=== PATIENT | female | born 1935 | race Caucasian/White ===

== ENCOUNTER 2019-12-04 12:36 | Outpatient (CLI) | payer MEDICARE, OTHER ==
[~2019-12-04 12:36] MED LIST: AMLO2.5T5 PO; CLON0.1T22 PO; DICY10CA3 PO; HYDR25TA6 PO; HYDROXYZINE PO; LABETALOL PO; LEVO100T PO; LISI-170 PO; POTA10TA PO; SIMV10TA18 PO; TRAM-47 PO
== END 2019-12-04 23:59 | disposition home or self-care (01) ==
LOC: CFH 12:36
PROVIDERS: ATTEND Internal Medicine Cardiovascular Disease
DX: I08.2 Rheumatic disorders of both aortic and tricuspid valves (principal); I10 Essential (primary) hypertension; I21.4 Non-ST elevation (NSTEMI) myocardial infarction
CPT/HCPCS: 93306